=== PATIENT | female | born 1965 ===

== ENCOUNTER 2018-07-23 07:16 | Day surgery (SDC) | payer MEDICAID ==
[2018-07-22 09:05] VITALS: BMI 31.6
[2018-07-23] MEDS ORDERED: Lactated Ringer's 500 ML IV SCH (07:30)
[2018-07-23] MEDS ORDERED: Lactated Ringer's 1,000 ML IV ONE (10:25)
[2018-07-23] MEDS ORDERED: Propofol 10 mg/ml Inj (20 ML) ONE ×2 (10:29→10:49)
[2018-07-23 11:46] VITALS: TEMP 98; O2SAT 100
[2018-07-23 14:01] VITALS: BP 121/76; PULSE 64; RESP 64
== END 2018-07-23 12:25 | disposition home or self-care (01) ==
LOC: C.ENDO 07:16
PROVIDERS: ATTEND Internal Medicine Gastroenterology
DX: D12.5 Benign neoplasm of sigmoid colon (principal); K21.9 Gastro-esophageal reflux disease without esophagitis; K57.90 Diverticulosis of intestine, part unspecified, without perforation or abscess without bleeding; K29.50 Unspecified chronic gastritis without bleeding; D12.4 Benign neoplasm of descending colon; B96.81 Helicobacter pylori [H. pylori] as the cause of diseases classified elsewhere
CPT/HCPCS: 43239; 45388; 82948; 84703; 88305; 88312; 88342; J2001; J2704; J3010; J7120